=== PATIENT | male | born 1990 | race African-American/Black ===

== ENCOUNTER 2016-11-08 20:25 | Inpatient (IN) | payer MEDICAID ==
[~2016-11-08] VITALS: Ht 177.8 cm; Wt 102.5 kg
[2016-11-08] MEDS ORDERED: ASPIRIN 81 MG TABLET CHEW ONE (21:14)
[2016-11-08 21:21] LABS: HEMATOCRIT 45.2 % (39.2-51.8); HEMOGLOBIN 15.4 g/dL (13.7-18.0); WHITE BLOOD COUNT 13.7 x10^3/uL (3.4-10)
[2016-11-08 21:29] LABS: BLOOD UREA NITROGEN 28 mg/dL (7-18)
[2016-11-08] MEDS ORDERED: SODIUM CHLORIDE FLUSH 10ML SYR IVF ONE (21:30)
[2016-11-08] MEDS ORDERED: ASPIRIN 81 MG TABLET CHEW PO ONE (21:30)
[2016-11-08] MEDS ORDERED: SODIUM CHLORIDE 0.9% 1,000ML IVBOLUS ONE ×2 (21:30→22:30)
[2016-11-08 21:36] LABS: IS PT STATUS REG ER OR PRE ER? YES
[2016-11-08] MEDS ORDERED: OMNIPAQUE 350 MG/ML, 100ML BOTTLE ONE (22:19)
[2016-11-08] MEDS ORDERED: MORPHINE SULFATE 4 MG/ML, 1ML ONE (22:29)
[2016-11-08] MEDS ORDERED: ONDANSETRON 2MG/ML, 2ML ONE (22:29)
[2016-11-08] MEDS ORDERED: ONDANSETRON 2MG/ML, 2ML IVPush ONE (22:30)
[2016-11-08] MEDS ORDERED: MORPHINE SULFATE 4 MG/ML, 1ML IVPush PRN (22:30)
[2016-11-09] MEDS ORDERED: ENOXAPARIN 100 MG/ML SQ ONE
[2016-11-09] MEDS ORDERED: morphine SULFATE 10 MG/ML, 1ML IVPush PRN (00:30)
[2016-11-09] MEDS ORDERED: ACETAMINOPHEN 325 MG TABLET PO PRN (00:30)
[2016-11-09] MEDS ORDERED: BISACODYL 10 MG SUPP PR PRN (00:30)
[2016-11-09] MEDS ORDERED: POLYETHYLENE GLYCOL 17 GM PACKET PO PRN (00:30)
[2016-11-09] MEDS ORDERED: ONDANSETRON 2MG/ML, 2ML IVPush PRN (00:30)
[2016-11-09] MEDS ORDERED: GUAIFENESIN/DM 200-20MG, 10ML UDC PO PRN (00:30)
[2016-11-09 01:04] VITALS: BP 126/81
[2016-11-09 01:15] VITALS: BP 126/81
[2016-11-09] MEDS: SODIUM CHLORIDE 0.9% 1,000 ML IV SCH ×3 (01:17→12:34)
[2016-11-09] MEDS: IBUPROFEN 600 MG TABLET PO SCH ×3 (01:18→16:18)
[2016-11-09] MEDS: NICOTINE 21 MG/24 HR PATCH.TD24 TD SCH (01:18)
[2016-11-09 03:43] LABS: HEMATOCRIT 39.6 % (39.2-51.8); HEMOGLOBIN 13.3 g/dL (13.7-18.0); WHITE BLOOD COUNT 9.5 x10^3/uL (3.4-10)
[2016-11-09 03:54] LABS: BLOOD UREA NITROGEN 22 mg/dL (7-18)
[2016-11-09 03:59] LABS: ASPARTATE AMINO TRANSFERASE 81 U/L (15-37)
[2016-11-09 04:02] LABS: IS PT STATUS REG ER OR PRE ER? NO
[2016-11-09 07:49] VITALS: BP 104/60
[2016-11-09] MEDS: SENNA/DOCUSATE TABLET PO SCH (08:31)
[2016-11-09 09:00] LABS: IS PT STATUS REG ER OR PRE ER? NO
[2016-11-09] MEDS: HYDROcodone/APAP 5/325 TABLET PO PRN ×2 (12:33→20:18)
[2016-11-09 13:00] VITALS: BP 125/72
[2016-11-09 20:10] VITALS: BP 122/76
[2016-11-10] MEDS: NICOTINE 21 MG/24 HR PATCH.TD24 TD SCH (00:30)
[2016-11-10] MEDS: IBUPROFEN 600 MG TABLET PO SCH ×3 (01:25→16:48)
[2016-11-10 01:27] VITALS: BP 116/63
[2016-11-10 05:25] LABS: HEMOGLOBIN 12.3 g/dL (13.7-18.0); WHITE BLOOD COUNT 7.2 x10^3/uL (3.4-10)
[2016-11-10] MEDS: SODIUM CHLORIDE 0.9% 1,000 ML IV SCH (05:48)
[2016-11-10] MEDS: HYDROcodone/APAP 5/325 TABLET PO PRN ×3 (05:48→15:02)
[2016-11-10 05:54] LABS: ASPARTATE AMINO TRANSFERASE 57 U/L (15-37); BLOOD UREA NITROGEN 16 mg/dL (7-18)
[2016-11-10 07:35] VITALS: BP 110/71
[2016-11-10] MEDS ORDERED: REGADENOSON 0.4 MG/5 ML SYRINGE ONE (08:26)
[2016-11-10] MEDS: SENNA/DOCUSATE TABLET PO SCH (09:00)
[2016-11-10] MEDS ORDERED: ENOXAPARIN 40 MG/0.4 ML SQ SCH (09:00)
[2016-11-10 15:02] VITALS: BP 130/74
[2016-11-10] MEDS ORDERED: HYDR-3240 PO (15:54)
[2016-11-10] MEDS ORDERED: OMEP-110 PO (15:54)
[2016-11-10] MEDS ORDERED: IBUP-1222 PO (15:54)
[2016-11-10] MEDS ORDERED: OMEPRAZOLE 20 MG CAPSULE.DR PO SCH (16:00)
== END 2016-11-10 18:30 | disposition home or self-care (01) | DRG 683 ==
LOC: ED 20:56 → EDIP 23:36 → 5SO 11-09 00:30
PROVIDERS: ADMIT Family Medicine; ATTEND Family Medicine
DX: N17.9 Acute kidney failure, unspecified (principal); I24.9 Acute ischemic heart disease, unspecified; I31.9 Disease of pericardium, unspecified; J20.8 Acute bronchitis due to other specified organisms; E83.52 Hypercalcemia; E86.0 Dehydration; F17.210 Nicotine dependence, cigarettes, uncomplicated; M43.10 Spondylolisthesis, site unspecified; R74.8 Abnormal levels of other serum enzymes; G89.29 Other chronic pain; M54.5 Low back pain
CPT/HCPCS: 36415; 71020; 71275; 78452; 80048; 80053; 80061; 82040; 82306; 83880; 83970; 84484; 85025; 85651; 86141; 93005; 93017; 93306; 96361; 96372; 96374; 96375; J1650; J2405; J2785; Q9967; A9502; C9898; J7030

== ENCOUNTER 2016-11-23 12:49 | Emergency (ER) | payer MEDICAID ==
[~2016-11-23] VITALS: Ht 180.3 cm; Wt 100.5 kg
[~2016-11-23 12:49] MED LIST: HYDR-3240 PO; IBUP-1222 PO; OMEP-110 PO
[2016-11-23 13:00] VITALS: BP 154/82
== END 2016-11-23 14:20 | disposition home or self-care (01) ==
LOC: ED 14:05
DX: M79.672 Pain in left foot (principal); M54.5 Low back pain
CPT/HCPCS: 99284

== ENCOUNTER 2016-12-05 19:08 | Emergency (ER) | payer MEDICAID ==
[~2016-12-05] VITALS: Ht 180.3 cm; Wt 100.7 kg
[2016-12-05] MEDS ORDERED: OXYcodone/APAP 5/325MG TABLET ONE (19:54)
[2016-12-05] MEDS ORDERED: METHOCARBAMOL 750 MG TABLET ONE (19:58)
[2016-12-05] MEDS ORDERED: OXYcodone/APAP 5/325MG TABLET PO ONE (20:00)
[2016-12-05] MEDS ORDERED: METHOCARBAMOL 750 MG TABLET PO ONE (20:00)
[2016-12-05 20:22] VITALS: BP 138/81
== END 2016-12-05 20:24 | disposition home or self-care (01) ==
LOC: ED 20:16
DX: S39.012A Strain of muscle, fascia and tendon of lower back, initial encounter (principal); G89.29 Other chronic pain; X58.XXXA Exposure to other specified factors, initial encounter; Y93.89 Activity, other specified; Y92.89 Other specified places as the place of occurrence of the external cause; Y99.8 Other external cause status
CPT/HCPCS: 99283

== ENCOUNTER 2017-03-29 18:15 | Emergency (ER) | payer MEDICAID ==
[~2017-03-29] VITALS: Ht 175.3 cm; Wt 95.0 kg
[2017-03-29] MEDS ORDERED: SODIUM CHLORIDE FLUSH 10ML SYR IVF ONE (18:30)
[2017-03-29] MEDS ORDERED: ASPIRIN 81 MG TABLET CHEW PO ONE (18:30)
[2017-03-29] MEDS ORDERED: ASPIRIN 81 MG TABLET CHEW ONE (18:39)
[2017-03-29 18:56] LABS: BASOPHILS # (AUTO) 0.08 x10^3/uL (0-0.1); BASOPHILS % (AUTO) 1 % (0-1); EOSINOPHILS # (AUTO) 0.06 x10^3/uL (0-0.4); EOSINOPHILS % (AUTO) 1 % (1-7); LYMPHOCYTES # (AUTO) 2.56 x10^3/uL (1-3.4); LYMPHOCYTES % (AUTO) 24 % (22-44); MD NO; MEAN CORPUSCULAR HEMOGLOBIN 29.9 pg (27.5-34.5); MEAN CORPUSCULAR HGB CONC 33.9 g/dL (33.2-36.2); MEAN CORPUSCULAR VOLUME 88.3 fL (81-97); MEAN PLATELET VOLUME 6.1 fL (7.4-10.4); MONOCYTES # (AUTO) 0.62 x10^3/uL (0.2-0.8); MONOCYTES % (AUTO) 6 % (2-9); NEUTROPHILS # (AUTO) 7.31 x10^3/uL (1.8-6.8); NEUTROPHILS % (AUTO) 69 % (42-75); PLATELET COUNT 503 x10^3/uL (130-400); RED BLOOD COUNT 5.13 x10^6/uL (4.38-5.82)
[2017-03-29] MEDS ORDERED: KETOROLAC 30 MG/1 ML IM ONE (19:00)
[2017-03-29 19:08] LABS: ALBUMIN 3.7 g/dL (3.4-5.0); ANION GAP 5 mmol/L (5-15); CALCIUM 9.4 mg/dL (8.5-10.1); CHLORIDE 105 mmol/L (98-107)
[2017-03-29 19:14] LABS: ALANINE AMINOTRANSFERASE 78 U/L (12-78); ALKALINE PHOSPHATASE 124 U/L (45-117); BILIRUBIN,TOTAL 0.2 mg/dL (0.2-1.0); CREATININE 1.04 mg/dL (0.7-1.3); FREE T4 (FREE THYROXINE) 1.05 ng/dL (0.76-1.46); TOTAL PROTEIN 8.2 g/dL (6.4-8.2); TROPONIN I < 0.015 ng/mL (0.000-0.045)
[2017-03-29] MEDS ORDERED: KETOROLAC 30 MG/1 ML ONE (19:18)
[2017-03-29] MEDS ORDERED: HYDR10TA4 PO (19:24)
[2017-03-29] MEDS ORDERED: DEXT10TA7 PO (19:24)
[2017-03-29 20:24] VITALS: BP 123/86
== END 2017-03-29 20:28 | disposition home or self-care (01) ==
LOC: ED 19:55
DX: M94.0 Chondrocostal junction syndrome [Tietze] (principal); F90.9 Attention-deficit hyperactivity disorder, unspecified type; F41.9 Anxiety disorder, unspecified
CPT/HCPCS: 36415; 71045; 80053; 84439; 84443; 84484; 85025; 85379; 93005; 96372; 99285; J1885

== ENCOUNTER 2017-08-04 10:23 | Emergency (ER) | payer MEDICAID ==
[~2017-08-04] VITALS: Ht 180.3 cm; Wt 91.3 kg
[~2017-08-04 10:23] MED LIST changes: +DEXT10TA7 PO; +HYDR10TA4 PO
[2017-08-04] MEDS ORDERED: KETOROLAC 30 MG/1 ML ONE (10:54)
[2017-08-04] MEDS ORDERED: KETOROLAC 30 MG/1 ML IM ONE (11:00)
[2017-08-04 11:46] LABS: BASOPHILS # (AUTO) 0.08 x10^3/uL (0-0.1); BASOPHILS % (AUTO) 1 % (0-1); EOSINOPHILS # (AUTO) 0.05 x10^3/uL (0-0.4); EOSINOPHILS % (AUTO) 1 % (1-7); LYMPHOCYTES # (AUTO) 2.34 x10^3/uL (1-3.4); LYMPHOCYTES % (AUTO) 27 % (22-44); MD NO; MEAN CORPUSCULAR HEMOGLOBIN 29.8 pg (27.5-34.5); MEAN CORPUSCULAR VOLUME 87.8 fL (81-97); MEAN PLATELET VOLUME 7.1 fL (7.4-10.4); MONOCYTES # (AUTO) 0.66 x10^3/uL (0.2-0.8); MONOCYTES % (AUTO) 8 % (2-9); NEUTROPHILS # (AUTO) 5.53 x10^3/uL (1.8-6.8); NEUTROPHILS % (AUTO) 64 % (42-75); PLATELET COUNT 366 x10^3/uL (130-400); RED BLOOD COUNT 4.48 x10^6/uL (4.38-5.82); RED CELL DISTRIBUTION WIDTH 14.4 % (9.4-14.8)
[2017-08-04 11:52] VITALS: BP 167/78
[2017-08-04 11:57] LABS: ALBUMIN 3.7 g/dL (3.4-5.0); ANION GAP 5 mmol/L (5-15); CHLORIDE 110 mmol/L (98-107); CREATININE 1.06 mg/dL (0.7-1.3)
[2017-08-04] MEDS ORDERED: CYCLOBENZAPRINE 10 MG TABLET PO ONE (12:00)
[2017-08-04 12:01] LABS: TROPONIN I < 0.015 ng/mL (0.000-0.045)
[2017-08-04] MEDS ORDERED: CYCLOBENZAPRINE 10 MG TABLET ONE (12:26)
== END 2017-08-04 12:33 | disposition left against medical advice (07) ==
LOC: ED 11:18
DX: R07.89 Other chest pain (principal); M79.661 Pain in right lower leg; M79.1 Myalgia; F90.9 Attention-deficit hyperactivity disorder, unspecified type
CPT/HCPCS: 36415; 71046; 80048; 82040; 84484; 85025; 85379; 93005; 93971; 96372; 99283; J1885